=== PATIENT | male | born 1985 | race Hispanic/Latino ===

== ENCOUNTER 2023-06-27 16:04 | Emergency (ER) | payer OTHER, SELFPAY ==
[2023-06-27] MEDS ORDERED: Lidocaine 1% PF 5 ML VIAL ONE (16:13)
[2023-06-27] MEDS ORDERED: Boostrix 0.5 ML (Tdap) VIAL (>/=7 yrs of age) ONE (16:13)
== END 2023-06-27 17:17 | disposition home or self-care (01) ==
LOC: BURERS 16:04
DX: S61.217A Laceration without foreign body of left little finger without damage to nail, initial encounter (principal); E11.9 Type 2 diabetes mellitus without complications; X58.XXXA Exposure to other specified factors, initial encounter
CPT/HCPCS: 12001; 90471; 90715